=== PATIENT | female | born 1940 | race Two or more races ===

== ENCOUNTER 2019-11-29 08:00 | Inpatient (IN) | payer OTHER ==
[~2019-11-29] VITALS: Ht 157.5 cm; Wt 56.7 kg
[2019-11-29] MEDS ORDERED: ATORVASTATIN CA10 MG PO (10:26)
[2019-11-29] MEDS ORDERED: FOLIC ACID PO (10:26)
[2019-11-29] MEDS ORDERED: PROTONIX40 MG PO (10:27)
[2019-11-29] MEDS ORDERED: [UNRECOGNIZED DRUG - OTHER] PO (10:28)
[2019-12-07] MEDS ORDERED: REVLIMID15 MG PO (11:51)
[2019-12-07] MEDS ORDERED: FOLIC ACID1 MG PO (11:52)
[2019-12-07] MEDS ORDERED: ONDANSETRON HCL4 MG PO (11:52)
== END 2019-12-11 09:05 | disposition home or self-care (01) | DRG 331 ==
LOC: SURH 12-07 08:00 → O/R 12-07 08:15 → SURG 12-07 08:15 → SURH 12-07 13:15 → SURG 12-07 15:40
PROVIDERS: ADMIT Colon & Rectal Surgery; ATTEND Colon & Rectal Surgery
PROC: 0DNN4ZZ Release Sigmoid Colon, Percutaneous Endoscopic Approach (ICD-10-PCS; 2019-12-07)
PROC: 0DTJ4ZZ Resection of Appendix, Percutaneous Endoscopic Approach (ICD-10-PCS; 2019-12-07)
PROC: 0DSN4ZZ Reposition Sigmoid Colon, Percutaneous Endoscopic Approach (ICD-10-PCS; 2019-12-07)
PROC: 0DBN4ZZ Excision of Sigmoid Colon, Percutaneous Endoscopic Approach (ICD-10-PCS; principal; 2019-12-07 13:15)
DX: K57.30 Diverticulosis of large intestine without perforation or abscess without bleeding (principal); Z43.3 Encounter for attention to colostomy; K43.9 Ventral hernia without obstruction or gangrene; K66.0 Peritoneal adhesions (postprocedural) (postinfection)

== ENCOUNTER → 2019-11-29 | Outpatient (CLI) | payer OTHER ==
[~2019-11-29] MED LIST: ATORVASTATIN CA10 MG PO; FOLIC ACID PO; PROTONIX40 MG PO; [UNRECOGNIZED DRUG - OTHER] PO
== END | disposition home or self-care (01) ==
LOC: RX STUDY 09:35
DX: N82.3 Fistula of vagina to large intestine (principal)

== ENCOUNTER 2019-12-05 07:00 | Day surgery (SDC) | payer OTHER | END 2019-12-05 10:45 | disposition home or self-care (01) | LOC: AMB-ENDOS 07:00 | DX: D12.3 Benign neoplasm of transverse colon (principal); D12.4 Benign neoplasm of descending colon; K64.8 Other hemorrhoids; Z93.3 Colostomy status; Z12.11 Encounter for screening for malignant neoplasm of colon ==

== ENCOUNTER 2020-04-04 05:39 | Day surgery (SDC) | payer OTHER ==
[~2020-04-04 05:39] MED LIST changes: +FOLIC ACID1 MG PO; +LIPIT PO; +ONDANSETRON HCL4 MG PO; +REVLIMID15 MG PO
== END 2020-04-04 11:05 | disposition home or self-care (01) ==
LOC: CIR.AMB 05:39
PROVIDERS: ATTEND Colon & Rectal Surgery
DX: R15.9 Full incontinence of feces (principal); R32 Unspecified urinary incontinence; Z20.828 Contact with and (suspected) exposure to other viral communicable diseases
CPT/HCPCS: 64581; C1778

== ENCOUNTER 2020-04-18 05:45 | Day surgery (SDC) | payer OTHER | END 2020-04-18 11:00 | disposition home or self-care (01) | LOC: CIR.AMB 05:45 | PROVIDERS: ATTEND Colon & Rectal Surgery | DX: R15.9 Full incontinence of feces (principal) | CPT/HCPCS: 64590; 95971; L8679 ==

== ENCOUNTER 2022-04-06 11:20 | Emergency (ER) | payer OTHER ==
[~2022-04-06] VITALS: Ht 157.5 cm; Wt 54.4 kg
== END 2022-04-06 16:35 | disposition home or self-care (01) ==
LOC: ER 11:20
DX: K52.9 Noninfective gastroenteritis and colitis, unspecified (principal); Z85.3 Personal history of malignant neoplasm of breast; Z93.3 Colostomy status; Z91.041 Radiographic dye allergy status; Z87.898 Personal history of other specified conditions